=== PATIENT | male | born 1990 | race Caucasian/White ===

== ENCOUNTER 2018-02-28 12:41 | Emergency (ER) | payer MEDICAID ==
[~2018-02-28] VITALS: Ht 172.7 cm; Wt 54.4 kg
[2018-02-28 13:12] LABS: BASOPHIL % 0.7 % (0-2); PLATELET COUNT 224 x10^3mcL (130-400); RED CELL DISTRIBUTION WIDTH 13.6 % (11.5-14.5)
[2018-02-28 13:22] LABS: CALCIUM 8.7 mg/dL (8.5-10.1); CARBON DIOXIDE 26.5 mmol/L (21-32); CHLORIDE SERUM 101 mmol/L (98-107); GFR1 > 60 mL/min; GLUCOSE SERUM 123 mg/dL (74-106); POTASSIUM SERUM 3.5 mmol/L (3.5-5.1); SODIUM SERUM 138 mmol/L (136-145)
[2018-02-28 13:26] LABS: ALBUMIN 4.1 g/dL (3.4-5.0); ALKALINE PHOSPHATASE 91 U/L (46-116); ALT/SGPT 25 U/L (16-63); AST/SGOT 11 U/L (15-37); BILIRUBIN TOTAL 1.46 mg/dL (0.20-1.00); MAGNESIUM 1.7 mg/dL (1.8-2.4); TOTAL PROTEIN, SERUM 7.7 g/dL (6.4-8.2)
[2018-02-28 15:17] LABS: microscopic required? NO
[2018-02-28 15:31] LABS: urine erythrocyte NEGATIVE (NEGATIVE)
[2018-02-28 16:16] VITALS: BP 114/64
== END 2018-02-28 16:14 | disposition home or self-care (01) ==
LOC: ED 12:41
PROVIDERS: Emergency Medicine
DX: R53.1 Weakness (principal); R11.0 Nausea; R42 Dizziness and giddiness; R68.83 Chills (without fever)
CPT/HCPCS: J7030; Q0092